=== PATIENT | male | born 1930 | race Caucasian/White ===

== ENCOUNTER → 2016-12-23 | Outpatient (CLI) | payer MEDICARE ==
[2016-12-23 09:33] LABS: ALBUMIN 3.5 gm/dl (3.1-4.5); ALKALINE PHOSPHATASE 92 U/L (45-117); BILIRUBIN, TOTAL 0.5 mg/dl (0.2-1.0); BUN 21 mg/dl (7-24); CARBON DIOXIDE 30 mmol/L (21-32); CHLORIDE 102 mmol/L (98-107); CHOLESTEROL 179 mg/dL (<200); EST GLOM FILT AFRICAN AMERICAN > 60 ml/min; GLUCOSE 153 mg/dL (65-99); HDL CHOLESTEROL 42 mg/dl (40-60); LDL CHOLESTEROL 115 mg/dL (9-159); POTASSIUM 4.3 mmol/L (3.5-5.1); SGOT/AST 15 IU/L (3-35); SGPT/ALT 20 U/L (12-78); SODIUM 140 mmol/L (136-145); TRIGLYCERIDES 112 mg/dl (<150); VLDL CHOLESTEROL 22 mg/dL (6-40)
== END | disposition home or self-care (01) ==
LOC: LAB 08:41
PROVIDERS: Family Medicine
DX: Z00.01 Encounter for general adult medical examination with abnormal findings (principal); K21.9 Gastro-esophageal reflux disease without esophagitis; I10 Essential (primary) hypertension

== ENCOUNTER 2017-05-12 10:51 | Inpatient (IN) | payer MEDICARE ==
[~2017-05-12] VITALS: Ht 190.5 cm; Wt 89.9 kg
--- NOTE | ~2017-05-12 | PR ---
[place], [place] [facility]GR[id number] UNIT #: [id number] ROOM: 519 DOCTOR: ARIS GONZALES,ALEXY Suárez BIRTHDATE: [birth year] DOS: 05/15/2017 SUBJECTIVE: The patient was seen and examined. He is awake and alert. He is sitting in the chair. He has all his clothes on and states he is being discharged today and is ready to go now. He feels well. He denies shortness of breath, fevers, chills or night sweats. PHYSICAL EXAMINATION: VITAL SIGNS: Temperature 98.1, pulse 79, respiratory rate 18, blood pressure 151/81. HEENT: Shows no JVD. LUNGS: Clear. HEART: Normal S1, S2. ABDOMEN: Soft, nontender. There is no organomegaly. EXTREMITIES: Showed no edema. SKIN: Showed no rash. LABORATORY DATA: Sodium 135, potassium 4.3, BUN , creatinine 1.25, glucose 131, calcium 8.4, phosphorus of 3.2, albumin of 2.9. ASSESSMENT AND PLAN: 1. Hyponatremia, which has improved and essentially has resolved. The patient was instructed to limit his fluid intake to approximately 2 liters per day. He should increase his protein and . He does have salt tabs at home, was encouraged to take this a few times a week as well. 2. Stage 3 chronic kidney disease. The patient's creatinine is stable and likely at baseline. 3. Hypothyroidism. Continue Synthroid. 4. History of benign prostatic hypertrophy. Continue meds. The patient is stable for discharge from a renal standpoint, we will sign off at this point. ALEXY HURST MD CM:PNTRANS 10 52 ALEXY HURST MD 05/15/172253 interface
[2017-05-12 10:51] VITALS: BP 117/62
[2017-05-12 11:10] LABS: BASO % 0.2 % (0.0-1.0); EOS # 0.5 10*3/uL (0.0-0.4); EOS % 5.7 % (1.0-4.0); HEMATOCRIT 38.3 % (42.0-52.0); HEMOGLOBIN 13.4 g/dl (14.0-18.0); LYMPH # 1.2 10*3/uL (1.3-4.4); MEAN CELL VOLUME 86.3 fl (80.0-94.0); MEAN CORPUSCULAR HGB 30.2 pg (27.0-31.0); MEAN PLATELET VOLUME 8.7 fl (9.6-12.3); MONO # 1.4 10*3/uL (0.1-1.0); MONO % 17.5 % (3.0-9.0); NEUT % 60.7 % (47.0-73.0); PLATELET COUNT AUTOMATED 185 10*3/uL (130-400); RED BLOOD COUNT 4.44 10*6/uL (4.50-5.90); RED CELL DISTRI WIDTH 13.3 % (0-14.5); WHITE BLOOD COUNT 8.2 10*3/uL (4.8-10.8)
[2017-05-12 11:21] LABS: ACT PARTIAL THROMBO TIME 30.7 SECONDS (20.8-31.5)
[2017-05-12 11:26] LABS: ALBUMIN 2.9 gm/dl (3.1-4.5); ALKALINE PHOSPHATASE 82 U/L (45-117); BUN 23 mg/dl (7-24); CHLORIDE 92 mmol/L (98-107); CREATININE 1.29 mg/dL (0.70-1.30); SGOT/AST 19 IU/L (3-35); SGPT/ALT 17 U/L (12-78); SODIUM 126 mmol/L (136-145); TOTAL PROTEIN 6.5 gm/dL (6.4-8.2)
[2017-05-12 11:30] LABS: TROPONIN I < 0.015 ng/ml (<0.045)
--- NOTE | 2017-05-12 12:45 | NUR ---
A 87, admitted to 5E, under the services of YUDITH Arreaga FACP, MD with a diagnosis of NEAR SYNCOPE,HYPONATREMIA,POLYARTHRITIS. Chief complaint is WEAKNESS, LEFT ELBOW PAIN. Patient arrived via bed from ER. Monitor applied. Initial assessment completed. Vital signs taken and recorded. YUDITH ARREAGA FACP, MD notified of admission to the unit. Orders received. See assessment for past medical history, medications and allergies. Patient and/or family oriented to unit. [facility] visitation policy reviewed. Clothing/patient valuable form completed. GIRMA BAILEY
[2017-05-12 13:11] VITALS: BP 128/56
[2017-05-12] MEDS ORDERED: ALPHAGAN P 10 M10 M1 OPH (13:27)
[2017-05-12] MEDS ORDERED: XANAX0.5 MG PO (13:28)
[2017-05-12] MEDS ORDERED: ASPIRIN CHEWABL81 MG PO (13:28)
[2017-05-12] MEDS ORDERED: CENTRUM SILVER1 EACH PO (13:29)
[2017-05-12] MEDS ORDERED: DEXILANT60 M1 PO (13:30)
[2017-05-12] MEDS ORDERED: PROSCAR5 M1 PO (13:30)
[2017-05-12] MEDS ORDERED: NEURONTIN300 MG PO (13:30)
[2017-05-12] MEDS ORDERED: LEVOTHYROXINE50 MCG PO (13:31)
[2017-05-12] MEDS ORDERED: ZESTRIL2.5 MG PO (13:31)
[2017-05-12] MEDS ORDERED: LOPRESSOR25 MG PO (13:32)
[2017-05-12] MEDS ORDERED: GOOD NEIGHBOR M25 M1 PO (13:32)
[2017-05-12] MEDS ORDERED: MIRTAZAPINE7.5 MG PO (13:33)
[2017-05-12] MEDS ORDERED: OMNITROPE5 MG/1.5 M SC (13:40)
[2017-05-12] MEDS ORDERED: PANTOPRAZOLE SO40 MG PO (13:40)
[2017-05-12] MEDS ORDERED: PROBIOTIC1 EAC1 PO (13:41)
[2017-05-12] MEDS ORDERED: ZANTAC 300300 MG PO (13:41)
[2017-05-12] MEDS ORDERED: RESTASIS1 EACH OP (13:41)
[2017-05-12] MEDS ORDERED: ZOCOR20 MG PO (13:42)
[2017-05-12] MEDS ORDERED: FLOMAX0.4 MG PO (13:44)
[2017-05-12] MEDS ORDERED: TRAD5TAB1 PO (13:45)
[2017-05-12] MEDS ORDERED: TRAVATAN Z 5 ML5 ML OPH (13:46)
[2017-05-12] MEDS ORDERED: TYLENOL325 M2 PO (13:46)
--- NOTE | 2017-05-12 13:47 | NUR ---
MED REQ UPDATED PER LIST FAXED FROM DR. PRINCE'S OFFICE.
--- NOTE | 2017-05-12 14:40 | NUR ---
PATIENT OFF OF FLOOR VIA WHEELCHAIR TO RADIOLOGY.
--- NOTE | 2017-05-12 15:26 | NUR ---
NOTIFIED OF ORTHOSTATIC BLOOD PRESSURE RESULTS. NO ORDERS GIVEN AT THIS TIME.
--- NOTE | 2017-05-12 15:32 | NUR ---
SPOKE WITH SYRUP FILTERER ABOUT DR. ALICEA CONSULT FOR LEFT ELBOW EFFUSION.
[2017-05-12 16:00] VITALS: BP 129/60
--- NOTE | 2017-05-12 18:06 | NUR ---
PHYSICAL THERAPY Physical Therapy Evaluation completed this date. See eval document for further details. Will begin PT intervention to address the impairements of muscle weakness, decreased functional mobility I, and difficulty ambulating during inpnt stay. Recommend SNF on d/c[place] [address] based on chart review and PT eval. Zulema Junior, PT
--- NOTE | 2017-05-12 18:39 | NUR ---
PATIENT IS RESTING COMFORTABLY IN BED. PATIENT DENIES ANY CHEST PAIN, N/V/D, OR SOB THROUGHOUT THE SHIFT. PATIENT HAS SWELLING IN THE LEFT ELBOW AND HAS TROUBLE IN FULL ROM EXCERCISES. PATIENT IS AMBULATORY WITH USE OF CANE. PATIENT IS A&OX3 AND HAS BEEN PLEASANT AND COOPERATIVE DURING SHIFT. CALL LIGHT IS WITHIN REACH.
[2017-05-12 20:00] VITALS: BP 154/74
[2017-05-12 22:51] LABS: BILIRUBIN NEGATIVE (NEGATIVE); BLOOD NEGATIVE (NEGATIVE); CLARITY CLEAR (CLEAR); COLOR YELLOW (YELLOW); GLUCOSE NEGATIVE (NEGATIVE); KETONE NEGATIVE (NEGATIVE); LEUKO ESTERASE NEGATIVE (NEGATIVE); NITRITE NEGATIVE (NEGATIVE); PH 5.5 (5.0-9.0); SPECIFIC GRAVITY 1.015 (1.005-1.030); UROBILINOGEN 0.2 E.U./dl (0.2-1.0)
[2017-05-12 22:56] LABS: BACTERIA TRACE; MUCOUS 1+
[2017-05-12 22:57] LABS: WBC 0-2 wbc/hpf (0-5)
[2017-05-13] VITALS (7 sets, daily range): BP systolic 138–177; BP diastolic 63–82
--- NOTE | 2017-05-13 00:40 | NUR ---
GIVEN TYLENOL AND RESTIRIL FOR PAIN AND INSOMNIA.
[2017-05-13 07:01] LABS: HEMATOCRIT 35.6 % (42.0-52.0); HEMOGLOBIN 12.4 g/dl (14.0-18.0); MEAN CELL VOLUME 87.5 fl (80.0-94.0); MEAN CORPUSCULAR HGB 30.5 pg (27.0-31.0); MEAN CORPUSCULAR HGB CONC 34.8 g/dl (33.0-37.0); MEAN PLATELET VOLUME 9.2 fl (9.6-12.3); PLATELET COUNT AUTOMATED 170 10*3/uL (130-400); RED BLOOD COUNT 4.07 10*6/uL (4.50-5.90); RED CELL DISTRI WIDTH 13.5 % (0-14.5)
[2017-05-13 07:35] LABS: ALBUMIN 2.6 gm/dl (3.1-4.5); BUN 21 mg/dl (7-24); CHLORIDE 93 mmol/L (98-107); CHOLESTEROL 152 mg/dL (<200); PHOSPHOROUS 3.2 mg/dL (2.5-4.9); POTASSIUM 4.1 mmol/L (3.5-5.1); SGOT/AST 17 IU/L (3-35); SGPT/ALT 15 U/L (12-78); SODIUM 125 mmol/L (136-145); TRIGLYCERIDES 61 mg/dl (<150); VLDL CHOLESTEROL 12 mg/dL (6-40)
[2017-05-13 07:41] LABS: ALKALINE PHOSPHATASE 73 U/L (45-117); FREE T4 0.99 ng/dl (0.76-1.46); HDL CHOLESTEROL 34 mg/dl (40-60); LDL CHOLESTEROL 106 mg/dL (9-159); THYROID STIM HORMONE (HS) 0.338 uIU/ml (0.358-4.75)
[2017-05-13 08:05] LABS: ATYPICAL LYMPHS 3 % (0-0); PLATELET SUFFICIENCY NORMAL (NORMAL); TOTAL CELLS COUNTED 100 #CELLS
--- NOTE | 2017-05-13 09:00 | NUR ---
Racehorse Trainer in to talk to patient. Patient states lives at home with alone. There are few steps in the home. Physician: shireen maldonado Pharmacy: [facility] services: none Patient's level of ADLs: INDEPENDENT Patient has working utilities: all working DME: none Follow-up physician's appointment after d/c: will be made by hospitalist nurse director upon discharge Does patient want to access PORTAL?: no Discharge plan discussed with patient, patient lives at home, is independent in adls and ambulation, patient states he will be going back home and denies any home needs. MELISSA VICTOR
[2017-05-13 09:17] LABS: VITAMIN D, 25-HYDROXY 70.4 ng/mL (30-100)
--- NOTE | 2017-05-13 09:17 | NUR ---
Dr Voss notified of consult.
--- NOTE | 2017-05-13 09:40 | NUR ---
PHYSICAL THERAPY López seen this AM 1:1 for his therapy session, Pt supine in bed. Went over with Pt on what we were going to do this AM. Transfer supine/sit CG X 1, sitting balance supervision x 1, sit/stand and up on standard walker standing balance MIN A X 1. Followed by gait into Pt's bathroom 14', MOD A X 1. Then gait total 60' X 2, one sitting rest standard walker MOD CLOTH CUTTING INSPECTOR X 1, cueing for gait safety and his turns. Pt up in his bedside chair, call light, phone. End with act Ex to bilateral LE with verbal cueing for each Ex of marching, LAQ's, and ankle pumps X 20 reps each. At times Pt seems a little slow, or hard of hearing. AGNES RUIZ CHECKERING MACHINE OPERATOR.
--- NOTE | 2017-05-13 11:15 | NUR ---
Occupational Therapy evaluation completed on 5 with full eval to follow. Precautions include left elbow pain/edema, polyarthritis, IV UE, fall risk, low complexity level 41761. Recommend OT per POC and return home with home health as indicated. Thank you for this referral. Winnie Valdovinos OTR/l
--- NOTE | 2017-05-13 12:26 | NUR ---
In to see patient to discuss snf stay. Patient stated [facility] and refuses to go there. He also had [facility] in the past but it was discontinued because he is not home bound. Patient enjoys doing therapy at the [facility], but agreed to snf only if he can go to or [facility]. [facility] stated they will have 1 room available at on Wednesday. Faxed referral, will require precert.
--- NOTE | 2017-05-13 14:59 | NUR ---
PATIENT NOT AVAILABLE FOR ECHO.
--- NOTE | 2017-05-13 15:06 | NUR ---
PT RETURNED TO FLOOR/ROOM.
--- NOTE | 2017-05-13 17:35 | NUR ---
PT BLADDER SCANNED PER ORDERS POST VOID. 120 ML SCANNED.
--- NOTE | 2017-05-13 19:30 | NUR ---
PATIENT IS RESTING COMFORTABLY IN BED, FAMILY IS AT THE BEDSIDE. PATIENT HAS ONLY VOIDED ONCE THROUGHOUT THE DAY, BUT DENIES DYSURIA. PT DENIES ANY PAIN OR DISCOMFORT. NO SOB ON RA, NO DIZZINESS UPON AMBULATIONS WITH ASSIST. SHWETA ALARM IS ACTIVATED, HOB ELEVATED. PATIENT IS ALERT AND ORIENTED AND COOPERATIVE UPON ASSESSMENT. CALL LIGHT WITHIN REACH. SEE SHIFT ASSESSMENT.
--- NOTE | 2017-05-13 23:46 | NUR ---
PATIENT IS RESTING IN BED. PATIENT IS IN AND OUT OF SLEEP UPON ASSESSMENT. PATIENT DENIES ANY PAIN, DISCOMFORT, SOB AT THIS TIME. PATIENT HAS NO REQUESTS AT THIS TIME. HEELS ELEVATED. CALL LIGHT WITHIN REACH. SEE ASSESSMENT.
[2017-05-14] VITALS: BP 158/84
--- NOTE | 2017-05-14 06:28 | NUR ---
patient is resting comfortably in bed. patient has been able to sleep throughout the night. pt has been able to ambulate to the restroom with minimal assistance. patient denies any pain, discomfort, or dizziness when standing. bed alarm activated call light is within reach, see shift assessment.
[2017-05-14 06:31] LABS: BUN 18 mg/dl (7-24); CHLORIDE 97 mmol/L (98-107); CREATININE 1.27 mg/dL (0.70-1.30); POTASSIUM 4.7 mmol/L (3.5-5.1); SODIUM 129 mmol/L (136-145)
[2017-05-14 06:38] LABS: BASO % 0.2 % (0.0-1.0); LYMPH # 0.9 10*3/uL (1.3-4.4); LYMPH % 16.1 % (27.0-41.0); MEAN CELL VOLUME 87.1 fl (80.0-94.0); MEAN CORPUSCULAR HGB CONC 35.6 g/dl (33.0-37.0); MEAN PLATELET VOLUME 9.4 fl (9.6-12.3); MONO # 0.3 10*3/uL (0.1-1.0); MONO % 5.3 % (3.0-9.0); NEUT # 4.1 10*3/uL (2.3-7.9); NEUT % 77.6 % (47.0-73.0); RED CELL DISTRI WIDTH 13.3 % (0-14.5); THYROID STIM HORMONE (HS) 0.423 uIU/ml (0.358-4.75); WHITE BLOOD COUNT 5.3 10*3/uL (4.8-10.8)
[2017-05-14 06:46] LABS: HEMATOCRIT 42.7 % (42.0-52.0); HEMOGLOBIN 15.2 g/dl (14.0-18.0); PLATELET COUNT AUTOMATED 235 10*3/uL (130-400)
[2017-05-14 08:00] VITALS: BP 150/94
--- NOTE | 2017-05-14 10:56 | NUR ---
PATIENT SEEN 1:1 OT THIS DATE 17 MINUTES. PATIENT SEATED IN RECLINER. IDENTIFIED PATIENT BY NAME AND DATE OF . PATIENT REPORTS THAT HIS SHOULDER FEELS MUCH BETTER TODAY. PATIENT COMPLETED LUE AROM WITH MINIMAL C/O SORENESS WITH SHOULDER MOVEMENT THAT INCLUDED SROM SHOULDER FLEX/EXT X 10 REPS, SHOULDER SHRUGS, ELBOW FLEX/EXT, WRIST AND HAND FLEX/EXT X 10 REPS WITH INCREASE TIME REQUIRED. PATIENT COMPLETED FUNCTIONAL XFERS STAND PIVOT TRANSFER RECLINER TO BED AND BACK CGA WITH MIN VERBAL CUES PROPER HAND PLACEMENT. LIVAN MARSH/Kavon
[2017-05-14 12:00] VITALS: BP 143/79
--- NOTE | 2017-05-14 12:00 | NUR ---
PHYSICAL THERAPY Patient presented to therapy with report of pain in the shoulders. Patient was in seated position with body alarm attached. Patient performed sit to stand transfer with SBA. Patient performed gait with standard walker and CGA X 1 for 175' x 1. Patient performed seated ther ex x 20 reps each in all planes of movement. Patient was left in seated position with call light within reach and body alarm attached. Patient was 1:1 with this CARTOGRAPHY/MAPPING TECHNICIAN for 20 minutes total. NICKY VALERO CARTOGRAPHY/MAPPING TECHNICIAN
--- NOTE | 2017-05-14 12:38 | NUR ---
In to see patient. Patient stated he feels good enough to go home now to resume going to the [facility] swimming aerobics. Contacted [facility] and cancelled referral for [facility]. notified [facility] nurse director of hospitalists.
--- NOTE | 2017-05-14 13:16 | NUR ---
Patient now wanting to go to [facility] for rehab. Contacted [facility] and asked to reconsider placement. Faxed updated progress notes and therapy notes. Will require precert. [facility] is full, [facility] may have an available bed on Wednesday05/15/17 if precert can be obtained today.
--- NOTE | 2017-05-14 13:41 | NUR ---
Completed hospital exemption online. [employer] system stated the alf doesn't have access to [employer] at this time, faxed a copy to yair puckett. Waiting on precert.
--- NOTE | 2017-05-14 14:34 | NUR ---
[facility], they will have an open bed on Wednesday05/15/17 if precert is obtained today.
[2017-05-14 16:00] VITALS: BP 136/75
--- NOTE | 2017-05-14 19:30 | NUR ---
PATIENT IS RESTING COMFORTABLY IN BED. PATIENT HAS NO COMPLAINT OF SOB, DIZZINESS, PAIN OR DISCOMFORT AT THIS TIME. PATIENT IS AMBULATORY WITH USE OF A FOUR POINT CANE. PATIENT REPORTS HAVING INCREASED FREQ IN VOIDING DURING THE NIGHT. CALL LIGHT IS WITHIN REACH, BED ALARM ACTIVATED. HOB ELEVATED, SKIN W/D/I, HEELS ELEVATED. CALL LIGHT WITHIN REACH. SEE SHIFT ASSESSMENT.
[2017-05-14 20:00] VITALS: BP 150/83
[2017-05-15] VITALS: BP 149/75
--- NOTE | 2017-05-15 | NUR ---
PT SLEEPING IN BED, RESP-EASY AND REGULAR. NO C/O AT THIS TIME. CALL LIGHT IN REACH. SEE SHIFT ASSESSMENT.
--- NOTE | 2017-05-15 01:36 | NUR ---
PT ASSITED UP TO BATHROOM VOIDED 250CC IN URINAL. POST RESIDUAL VOID DONE WITH 532CC SHOWED ON BLADDER SCANNER. PT STATES HE DOESN'T HAVE TO URINATE ANYMORE ALSO ASKED IF HE WOULD WANT STRAIGHT CATH TO DRAIN BLADDER HE REFUSES. CALL LIGHT IN REACH. BED ALARM ON.
--- NOTE | 2017-05-15 04:03 | NUR ---
PT AMBULATORY TO BATHROOM VOIDED 20CC URINE IN URINAL. POST RESIDUAL BLADDER SCAN DONE WITH 515CC OF URINE NOTED. PT STATES HE DOESN'T HAVE TO URINATE ANYMORE AT THIS TIME. CALL LIGHT IN REACH. BED ALARM ON.
--- NOTE | 2017-05-15 06:00 | NUR ---
PT TOLERATED MEDS. BSG-135, SEE EMAR. NO C/O AT THIS TIME. CALL LIGHT IN REACH.
--- NOTE | 2017-05-15 06:27 | NUR ---
CALLED DR. GARG OFFICE TO MAKE AWARE OF POST RESIDUAL BLADDER SCAN RESULTS. THEY WILL HAVE HIM CALL.
--- NOTE | 2017-05-15 06:32 | NUR ---
DR. HICKEY CALLED MADE AWARE OF PT POST VOID RESIDUAL. NO NEW ORDERS.
[2017-05-15 07:46] LABS: ALBUMIN 2.9 gm/dl (3.1-4.5); CHLORIDE 104 mmol/L (98-107); CREATININE 1.25 mg/dL (0.70-1.30); PHOSPHOROUS 3.2 mg/dL (2.5-4.9); POTASSIUM 4.3 mmol/L (3.5-5.1); SODIUM 135 mmol/L (136-145)
[2017-05-15 07:48] LABS: BUN 21 mg/dl (7-24)
[2017-05-15 08:00] VITALS: BP 153/69
[2017-05-15 12:00] VITALS: BP 151/81
--- NOTE | 2017-05-15 13:24 | NUR ---
SPOKE WITH DR. RODRIGEZ REGARDING PATIENTS DISCHARGE TO HOME.
[2017-05-15] MEDS ORDERED: DOXYCYCLINE MO100 M1 PO (13:28)
[2017-05-15] MEDS ORDERED: METOPROLOL TA37.5 MG PO (13:28)
[2017-05-15] MEDS ORDERED: SODIUM CHLORIDE1 GM PO (13:28)
--- NOTE | 2017-05-15 15:26 | NUR ---
Discharge instructions reviewed with patient/family. Patient receptive and verbalizes understanding. Follow-up care arranged. Written instructions given to patient/family. SIDDHARTHA IZEGLER
--- NOTE | 2017-05-17 07:21 | NUR ---
OCCUPATIONAL THERAPY CO-SIGN I approve of the Occupational Therapy notes written above. SRINIVASA WHITE OTR/Kavon
--- NOTE | 2017-05-17 07:50 | NUR ---
PHYSICAL THERAPY CO-SIGN I approve of the Phyical Therapy notes written above. CRISTOBAL JNUE PT
== END 2017-05-15 15:26 | disposition home or self-care (01) | DRG 643 ==
LOC: ED 10:51 → 5E 12:16 → EDHOLD 12:16 → 5E 12:33
PROVIDERS: Emergency Medicine; Family Medicine; Hospitalist; Internal Medicine; ADMIT Internal Medicine
DX: E22.2 Syndrome of inappropriate secretion of antidiuretic hormone (principal); J18.1 Lobar pneumonia, unspecified organism; E44.0 Moderate protein-calorie malnutrition; E11.40 Type 2 diabetes mellitus with diabetic neuropathy, unspecified; E11.22 Type 2 diabetes mellitus with diabetic chronic kidney disease; E11.65 Type 2 diabetes mellitus with hyperglycemia; M25.422 Effusion, left elbow; M19.022 Primary osteoarthritis, left elbow; K21.9 Gastro-esophageal reflux disease without esophagitis; F32.9 Major depressive disorder, single episode, unspecified; H40.9 Unspecified glaucoma; E78.5 Hyperlipidemia, unspecified; Z96.653 Presence of artificial knee joint, bilateral; E03.9 Hypothyroidism, unspecified; I12.9 Hypertensive chronic kidney disease with stage 1 through stage 4 chronic kidney disease, or unspecified chronic kidney disease; M65.30 Trigger finger, unspecified finger; Z96.611 Presence of right artificial shoulder joint; Z66 Do not resuscitate; Z51.5 Encounter for palliative care; N18.3 Chronic kidney disease, stage 3 (moderate); D64.9 Anemia, unspecified; E87.8 Other disorders of electrolyte and fluid balance, not elsewhere classified; N40.0 Benign prostatic hyperplasia without lower urinary tract symptoms; Z98.41 Cataract extraction status, right eye; Z87.891 Personal history of nicotine dependence; Z84.89 Family history of other specified conditions; Z88.8 Allergy status to other drugs, medicaments and biological substances; Z79.82 Long term (current) use of aspirin; Z79.899 Other long term (current) drug therapy; Z68.24 Body mass index [BMI] 24.0-24.9, adult